=== PATIENT | female | born 1945 | race Caucasian/White ===

== ENCOUNTER 2016-07-11 10:05 | Emergency (ER) | payer MEDICARE, OTHER ==
[~2016-07-11] VITALS: Ht 160 cm; Wt 75.9 kg
[~2016-07-11 10:05] MED LIST: ASPI-973 PO; CALC-786 PO; HYDR25TA4 PO; LISI40TA PO; LORA1TAB PO; MULT-1073 PO; OMEG1CAP25 PO; SIMV40TA5 PO; SODI354S PO; SYN75 PO; VENL75CA95 PO
[2016-07-11 10:09] VITALS: BP 156/81; PULSE 68; RESP 18; O2SAT 99
--- NOTE | 2016-07-11 10:27 | ED.REPORT ---
HPI-Dizziness / Weakness Date of Service Jul 11, 2016 ED Provider: Dr. Bright A 70 year old female with a history of HTN presents to ED from Urgent Care complaining of dizziness .Per nurse note, symptoms onset at 0200 this morning when the patient got out of bed to use the bathroom. Patient describes symptoms as a spinning sensation. Symptoms resolved after about 10 minutes, but have returned intermittently since. Dizziness is relieved with rest, and is elicited by tilting her head back, laying flat, and other unspecific positional changes. Patient denies tinnitus, and chest pain. Per nurse note, patient had a syncopal episode last week while having a BM, and reports feeling normal yesterday. Nursing Notes Stated Complaint: DIZZY Chief Complaint: General Complaint Nursing Notes Reviewed: Yes Allergies: Coded Allergies: No Known Allergies (Verified Allergy, Mild, 07/11/16) Scheduled Aspirin (Aspirin) 81 Mg Tablet 81 MG PO DAILY Hydrochlorothiazide (Hydrochlorothiazide) 25 Mg Tablet 25 MG PO DAILY Levothyroxine (Synthroid) 75 Mcg Tablet 75 MCG PO DAILY Lisinopril (Lisinopril) 40 Mg Tablet 40 MG PO DAILY Simvastatin (Simvastatin) 40 Mg Tablet 40 MG PO HS Venlafaxine ER (Venlafaxine ER) 75 Mg Cap.er.24h 75 MG PO DAILY Scheduled PRN Lorazepam (Lorazepam) 1 Mg Tablet 1 MG PO BID PRN PRN For Anxiety Meclizine (Bonine) 25 Mg Tab.chew 25 MG PO TID PRN PRN For Dizziness Miscellaneous Medications Calcium Carb & Cit/Vitamin D3 (Citracal + D ER Tablet) 1 Each Tablet.er 1 EACH PO Multivits-Min/FA/Lycopene/Lut (Centrum Silver Tablet) 1 Each Tablet 1 EACH PO [place]-3 Fatty Acids/Fish Oil ([place] 3 Fish Oil Softgel) 1 Each Capsule.dr 1 EACH PO Sodium,Potassium,&Mag Sulfates (Suprep Bowel Prep Kit) 354 Ml Soln.recon 354 ML PO General Time Seen by MD: 10:27 Chief Complaint Dizzy Hx Obtained From: Patient, Spouse Arrived By: Walk-in (Transferred from Urgent Care.) Onset Occurred: 9 - 12 hours ago Symptom Duration: Since onset Recent Healthcare: No recent doctor visit Past Medical History Past Medical History Gastrointestinal disorders. Colonic polyps only during 1st colonoscopy. Arthritis Reports: GERD (Intermittent), Hypertension Reports: Depression Past Surgical History Knee surgery R Mastectomy Reports: Cataract surgery, Hysterectomy (partial) Smoking History Never Smoker Ambulatory Status Independent Review of Systems Ears / Nose / Throat: Denies: Ear ringing bilateral Respiratory: Denies: Non-productive cough, Shortness of breath Cardiovascular: Denies: Chest pain GI: Denies: Vomiting Neurologic: Reports: Dizziness, Problem walking, Spinning sensation, Denies: Change LOC, Confusion, Headache, Numbness, Syncope Complete sys rev & neg: except as marked. Physical Exam Initial Vital Signs Vital Signs (First) Date Time Temp Pulse Resp B/P Pulse Ox O2 Delivery O2 Flow Rate FiO2 07/11/16 10:09 35.6 68 18 156/81 99 Room Air Initial VS: Reviewed General/Constitutional: Awake, Alert Head / Eyes: Atraumatic, Normocephalic, PERRL, EOMI Respiratory / Chest: Atraumatic, Breath sounds NL, Breath sounds = bilat, No respiratory distress, No rales, No rhonchi, No wheezing No ectopy on monitor. Cardiovascular: Heart rate NL, Regular rhythm, Heart sounds NL, No gallop, No murmurs, No rubs Neurologic: Oriented X3, Speech NL, No sensory deficits Patient had witnessed vertigo episode that lasted approximatley 2 seconds. ENT: Atraumatic, Airway patent, Mucous membranes moist Neck: Atraumatic, Full range of motion Abdomen: Atraumatic, Soft, Non-tender Back: Atraumatic, Full range of motion Lower Extremity / Pelvis / MS: Atraumatic, Full range of motion Skin: Atraumatic, Color NL, No rash, Warm, Dry Psychiatric: Affect NL, Mood NL Upper Extremity / MS: Atraumatic, Full range of motion Interpretation & Diagnostics Lab Results Interpretation Result Diagram: 07/11/16 1158 07/11/16 1158 Test 07/11/16 11:35 07/11/16 11:58 Urine Color Straw (YELLOW) Urine Appearance Hazy (CLEAR,HAZY) Urine pH 5.0 (5.0-8.0) Urine Specific [facility] 1.030 (1.003-1.035) Urine Protein Negativemg/dL (NEG,TRACE) Urine Glucose (UA) Negativemg/dL (NEGATIVE) Urine Ketones Tracemg/dL (NEGATIVE) Urine Occult Blood Negative (NEGATIVE) Urine Nitrite Negative (NEGATIVE) Urine Bilirubin Negative (NEGATIVE) Urine Urobilinogen Normalmg/dL (NORMAL) Urine Leukocyte Esterase Trace (NEGATIVE) Urine RBC 0-2/hpf (0-2) Urine WBC 0-5/hpf (0-5) Urine Epithelial Cells Occasional/hpf (NONE-MOD) Urine Crystals None seen (NONE SEEN) Urine Bacteria Few/hpf (NONE-FEW) Urine Hyaline Casts Occasional/lpf (NONE) Urine Granular Casts None seen (NONE SEEN) Urine Waxy Casts None seen (NONE SEEN) Urine Red Blood Cell Casts None seen (NONE SEEN) Urine White Blood Cell Casts None seen (NONE SEEN) Urine Mucus None seen (None Seen) Urine Trichomonas None seen (NONE SEEN) Urine Yeast None (NONE SEEN) Urinalysis Comment None Urine Culture Reflexed Not indicated White Blood Count 15.5th/mm3 (3.8-10.1) Red Blood Count 3.79mil/mm3 (3.90-5.20) Hemoglobin 11.5g/dL (12.0-15.6) Hematocrit 35.4% (35.0-46.0) Mean Corpuscular Volume 93.4fL (81-100) Mean Corpuscular Hemoglobin 30.3pg (27.0-35.0) Mean Corpuscular Hemoglobin Concent 32.5% (32.0-37.0) Red Cell Distribution Width 12.6% (12.3-15.4) Platelet Count 386bil/L (150-400) Neutrophils (%) (Auto) 88.7% (40-74) Lymphocytes (%) (Auto) 7.0% (14-46) Monocytes (%) (Auto) 3.6% (4-12) Eosinophils (%) (Auto) 0.3% (0-5) Basophils (%) (Auto) 0.2% (0-3) Prothrombin Time 9.8sec (8.1-12.5) Prothromb Time International Ratio 0.92ratio Activated Partial Thromboplast Time 21.0sec (22.8-33.0) Sodium Level 131mEq/L (134-144) Potassium Level 4.5mEq/L (3.5-5.2) Chloride Level 94mEq/L (97-108) Carbon Dioxide Level 22mmol/L (18-29) Blood Urea Nitrogen 25mg/dL (8-27) Creatinine 0.71mg/dL (0.57-1.00) Estimat Glomerular Filtration Rate 116mL/min (>59) Glucose Level 115mg/dL (60-99) Calcium Level 9.5mg/dL (8.5-10.1) Total Bilirubin 0.2mg/dL (0.0-1.2) Aspartate Amino Transf (AST/SGOT) 21U/L (0-50) Alanine Aminotransferase (ALT/SGPT) 14U/L (0-32) Alkaline Phosphatase 76U/L (25-165) Troponin T < 0.010ug/L (0.0-0.011) Total Protein 7.4g/dL (6.4-8.4) Albumin 4.1g/dL (3.4-5.0) Hold Hernandez Top Tube Received (Received) ECG Interpretation ECG Interpretation: Sinus Rhythm. Rate is 75. Ventricular premature complex. Time: 10:40 Interpreted by: ED physician X-Ray Chest Interpretation Chest Xray Interpretation: IMPRESSION: 1. Status post right mastectomy and axillary node resection. No metastatic disease seen. 2. Moderate hiatal hernia. 3. No acute cardiopulmonary abnormality. Dictated by: Joao Ornelas M.D. on 07/11/2016 at 11:27 Approved by: Joao Ornelas M.D. on 07/11/2016 at 11:29 View: Portable, 1 view Interpretation / Wet Read by: Interpret - ED physician CT Head Interpretation IMPRESSION: 1. No acute intracranial abnormality. 2. Mild age related cerebral atrophy and chronic deep white matter ischemic changes. Dictated by: Joao Ornelas M.D. on 07/11/2016 at 13:08 Approved by: Joao Ornelas M.D. on 07/11/2016 at 13:10 Study: Head CT no contrast Interpretation / Wet Read by: Interpret - Radiologist Re-Eval/Medical Decision Med Decision/Clinical Course Findings most consistent with benign paroxysmal positional vertigo, episodes are transient less than 5 seconds without associated other neurologic deficits, clinically improved after meclizine, other workup unremarkable. Will be discharged with instructions for Gigi maneuver, meclizine, and close follow-up. Return precautions given. Source of Hx: Old records Re-Evaluation/Progress #1: Time of Eval: 11:05 Re-Evaluation/Progress Note: Discussed physical examination findings and plan to discharge pending lab and radiology results. Patient understands and agrees to the plan. Return precautions given. All other questions addressed. Re-Evaluation/Progress #2: Time of Eval: 12:33 Patient Status: Condition improved Re-Evaluation/Progress Note: Rechecked patient. She describes that she feels better and wants to go home. I re-asked fulll ROS and patient denies any acute infectious symptoms such as fever, chills, nausea, vomiting, or dysuria. She reports rhinorrhea due to the cat. Counseled Regarding: Diagnosis, Lab results, Need for follow-up, When/why to return to ED Patient Discharge & Departure Impression: Primary Impression: Benign paroxysmal positional vertigo Disposition: Home Discharge Condition All VS Reviewed: Yes Condition: Stable Patient Instructions: Benign Paroxysmal Positional Vertigo (DC) Additional Instructions: Overall, your symptoms seem consistent with benign paroxysmal positional vertigo. Use meclizine as prescribed. You can try performing the Gigi maneuver at home to dislodge an otolith. Follow-up with your primary care doctor for further evaluation. Return to the ER immediately if you develop progressive neurologic deficits beyond transient dizziness, or any other concerning signs or symptoms. Referrals: Lowell Ceron MD (PCP) Bud Attestation Portions of this note were transcribed by Ashu Quesada and Raymond Carter. I, Dr. Bright personally performed the history, physical exam and medical decision-making; I reviewed and confirmed the accuracy of the information in the transcribed note. Signed by: Bud Corona, 07/11/2016 and 1324. Signed by: Bud Washington, 07/11/2016 and 1324. Lowell Ceron MDDereck Mcdonnell Jul 11, 2016 10:27 Ashu Quesada Jul 11, 2016 10:44 RAYMOND SALEEM Jul 11, 2016 12:01
[2016-07-11] MEDS ORDERED: 0.9% Sodium Chloride 1,000 ML IV ONE (10:29)
--- NOTE | 2016-07-11 11:31 | DRSVH ---
PROCEDURE: X-RAY CHEST ONE VIEW, PORTABLE ([id number]) INDICATIONS: weakness, dizziness TECHNIQUE: One view of the chest was acquired. COMPARISON: None. FINDINGS: Surgical changes and devices: Surgical clips right axilla. Absent right breast shadow. Lungs and pleura: No pleural effusions or pneumothorax. Lungs are clear. Mediastinum: Mediastinal contours appear normal. Heart size is normal. Moderate hiatal hernia. Bones and chest wall: No suspicious bony lesions. Overlying soft tissues appear unremarkable. IMPRESSION: 1. Status post right mastectomy and axillary node resection. No metastatic disease seen. 2. Moderate hiatal hernia. 3. No acute cardiopulmonary abnormality. Dictated by: Joao Ornelas M.D. on 07/11/2016 at 11:27 Approved by: Joao Ornelas M.D. on 07/11/2016 at 11:29
[2016-07-11 12:12] LABS: BASOPHILS % (AUTO) 0.2 % (0-3); EOSINOPHILS % (AUTO) 0.3 % (0-5); MONOCYTES % (AUTO) 3.6 % (4-12); Mean Corpuscular Hemoglobin 30.3 pg (27.0-35.0); Mean Corpuscular Volume 93.4 fL (81-100); NEUTROPHILS % (AUTO) 88.7 % (40-74); Platelet Count 386 bil/L (150-400)
[2016-07-11 12:26] LABS: APPEARANCE,URINE HAZY (CLEAR,HAZY); COLOR,URINE STRAW (YELLOW); OCCULT BLOOD,URINE NEGATIVE (NEGATIVE); UROBILINOGEN,URINE NORMAL (NORMAL)
[2016-07-11 12:28] LABS: INR 0.92 ratio
--- NOTE | 2016-07-11 13:11 | DRSVH ---
PROCEDURE: CT BRAIN WITHOUT CONTRAST ([id number]) INDICATIONS: dizziness TECHNIQUE: Noncontrast 4.5 mm thick angled axial sections acquired from the foramen magnum to the vertex, with c oronal reformats. COMPARISON: None. FINDINGS: Image quality: Excellent. CSF spaces: Basal cisterns are patent. No extra-axial fluid collections. The ventricles are symmet haseeb in size and shape. Brain: No intracranial bleeds or masses. There is cerebral volume loss for age, with resultant vent ricular and sulcal prominence. There are periventricular and deep white matter chronic small vessel ischemic changes. There is intracranial internal carotid artery atherosclerosis. Skull and face: Calvarium and visualized facial bones appear intact, without suspicious lesions. Sinuses: Visualized sinuses and mastoids are clear. IMPRESSION: 1. No acute intracranial abnormality. 2. Mild age related cerebral atrophy and chronic deep white matter ischemic changes. Dictated by: Joao Ornelas M.D. on 07/11/2016 at 13:08 Approved by: Joao Ornelas M.D. on 07/11/2016 at 13:10
[2016-07-11 13:14] LABS: TROPONIN T < 0.010 ug/L (0.0-0.011)
[2016-07-11] MEDS ORDERED: MECL-114 PO ×2 (13:19→13:32)
[2016-07-11 13:32] VITALS: BP 152/82; PULSE 72; RESP 15; O2SAT 98
== END 2016-07-11 13:21 | disposition home or self-care (01) ==
LOC: SED 10:05
DX: H81.10 Benign paroxysmal vertigo, unspecified ear (principal); I10 Essential (primary) hypertension; K21.9 Gastro-esophageal reflux disease without esophagitis; Z90.11 Acquired absence of right breast and nipple; Z87.19 Personal history of other diseases of the digestive system; Z79.82 Long term (current) use of aspirin
CPT/HCPCS: 36415; 70450; 71010; 80053; 81000; 84484; 85025; 85610; 85730; 93005; 99285; G0463